=== PATIENT | female | born 1970 | race American Indian/Alaskan Native ===

== ENCOUNTER 2021-02-23 06:07 | Observation (INO) | payer OTHER ==
[2021-02-17 12:03] LABS: Hemoglobin 11.3 gm/dl (10.1-14.3); Mean Corpuscular HGB Conc 33 % (30-34); Mean Corpuscular Volume 85 fl (79-97); Platelet Count 322 K/mm3 (140-440); Red Blood Count 3.99 M/mm3 (3.65-5.03); Red Cell Distribution Width 14.4 % (13.2-15.2)
[2021-02-17 12:22] LABS: BUN/Creatinine Ratio 16; Blood Urea Nitrogen 16 mg/dL (7-17); Calcium 9.5 mg/dL (8.4-10.2); Hemolysis Index 5
--- NOTE | 2021-02-22 09:38 | Anesthesia Consultation ---
Anesthesia Consult and Med Hx Date of service: 02/22/21 - Airway Anesthetic Teeth Evaluation: Good ROM Head & Neck: Adequate Mental/Hyoid Distance: Adequate Mallampati Class: Class II Intubation Access Assessment: Probably Good - Pulmonary Exam CTA: Yes - Cardiac Exam Cardiac Exam: RRR - Pre-Operative Health Status ASA Pre-Surgery Classification: ASA1 Proposed Anesthetic Plan: General Nerve Block: TAP - Pulmonary Hx Smoking: No Hx Respiratory Symptoms: No Hx Sleep Apnea: No (NIKKY PRE SCREEN NEGATIVE) - Cardiovascular System Hx Hypertension: No Hx Heart Attack/AMI: No (recent normal cardiac eval) - Central Nervous System CVA: No Hx Psychiatric Problems: Yes (anxiety, depression) - Endocrine Hx Renal Disease: No Hx Liver Disease: No Hx Insulin Dependent Diabetes: No Hx Non-Insulin Dependent Diabetes: No Hx Thyroid Disease: No - Hematic Hx Anemia: Yes (no hx blood transfusions) - Other Systems Hx Obesity: No - Additional Comments Anesthesia Medical History Comments: No prior GA. No FHx anesthetic complications.
--- NOTE | 2021-02-22 13:43 | History and Physical Report ---
History of Present Illness Date of examination: 02/19/21 Chief complaint: Menorrhagia, fibroids and dysmenorrhea History of present illness: Past History : 2 Term Births: 1 Living Children: 1 Para: 1 Spont. Ab: 1 # 1 Delivery date: 1992 Delivery type: [employer] History Uterine Surgery (not C/S): negative Operations: Breast Biopsy: (B) benign Hospitalizations: negative Anesthesia Complications: negative Abnormal PAP: negative Uterine Anomaly: negative NICK Exposure: negative Infertility: negative Infection History HIV Risk Eval: no Hep B Immunized: no TB exposure: no Personal hx. of genital herpes: no Partner hx. of genital herpes: no Hx of STD: None Active Medications (reviewed today): BUPROPION HCL ER (SR) 100 MG ORAL TABLET EXTENDED RELEASE 12 HOUR (BUPROPION HCL) VITAMIN D (CHOLECALCIFEROL) 25 MCG (1000 UT) ORAL CAPSULE (CHOLECALCIFEROL) Current Allergies (reviewed today): NSAIDS (Critical) Past Medical History: Reviewed history from 12/23/2020 and no changes required: H/O Anemia Anxiety Depression Past Surgical History: Reviewed history from 12/23/2020 and no changes required: Breast Biopsy: (B) benign Family History Summary: Reviewed history Last on 09/02/2013 and no changes required:02/22/2021 MGM - Has Family History Breast Cancer - diagnosed age 70, age 73 - Entered On: 02/16/2021 Mother - Has Family History of Lung Cancer - Entered On: 10/13/2020 Mother - Has Family History Breast Cancer - diagnosed age 64, age 74 - Entered On: 02/16/2021 General Comments - FH: Family History Breast Cancer Family History of Diabetes Family History of Hypertension Social History: Reviewed history from 10/13/2020 and no changes required: Patient is Smoking History: Patient has never smoked. Risk Factors: Smoked Tobacco Use: Never smoker Smokeless Tobacco Use: Never Passive Smoke Exposure: no HIV High Risk Behavior: no Exercise: yes Seatbelt Use: 100 % Alcohol Use: yes Type: Covid weekend consumption Drinks per day: social Drug Use: no Previous Tobacco Use: Signed On - 12/23/2020 Smoked Tobacco Use: Never smoker Smokeless Tobacco Use: Never Passive Smoke Exposure: no HIV High Risk Behavior: no Caffeine Use: 0 drinks per day Exercise: yes Times/wk: 4-5 Type of Exercise: running and yoga Seatbelt Use: 100 % Alcohol Use: yes Type: Covid weekend consumption Drinks per day: social Drug Use: no Physical Exam Appearance: well developed, well nourished, no acute distress Other Exams Lungs: no rales, rhonchi, or wheezes Heart: S1, S2, no murmur, rub, or gallop Genitourinary Exam Uterus: deferred for EUA Impression & Recommendations: Problem # 1: Fibroids, uterus (ICD-218.9) (XVH87-U46.9) She desires to proceed with hysterectomy with removal of both tubes and ovaries Diagnosis explained to patient . Discussed with patient various medical, shan gical and radiological therapies common for treatment including, but not limited to, myomectomy, hysterectomy and uterine artery embolization. Discussed risks and benefits of laparotomy, laparoscopy, vaginal and robotic assisted approaches for hysterectomies. Patient desires definitive treatment in the form of robot assisted laparoscopic total hysterectomy. The risks and alternatives for this surgery were reviewed with the patient. She was informed of the risks of the surgery including, but not limited to, pain, infection, bleeding possibly heavy enough to require a blood transfusion with associated risks of infections (hepatitis and HIV) and transfusion reactions, possible damage to bowel, bladder or ureter(s) and surrounding organs. . Patient understands that this surgery will make her sterile. Indications to abort a robotic/laparoscopic procedure and perform an open procedure were explained. Patient understands after her ovaries are removed she will become menopausal. Menopause symptoms and treatment options with risks and benefits explained. Patient advised the small risks of spreading of malignancy if morcellation is required during the surgery patient understands and approves performing if necessary. Questions answered. Consent reviewed and signed The patient was instructed/informed the following: The normal length of hospital stay for this procedure. Nothing to eat or drink after midnight the evening prior to surgery.. Pre-op instruction sheets given. Wound care instructions given. Problem # 2: Excessive and frequent menstruation with regular cycle (ICD-626.2) (UKX10-U23.0) Problem # 3: Dysmenorrhea (ICD-625.3) (GYR78-H44.6) Medications and Allergies Allergies Allergy/AdvReac Type Severity Reaction Status Date / Time No Known Allergies Allergy Verified 02/17/21 15:33 Home Medications Medication Instructions Recorded Confirmed Last Taken Type Cholecalciferol Vit D3 [Vitamin D3 1,000 unit PO QDAY 02/17/21 02/17/21 Unknown History 1,000 UNIT TAB] Pantoprazole [Protonix] 40 mg PO QDAY 02/17/21 02/17/21 Unknown History buPROPion [Wellbutrin] 100 mg PO DAILY 02/17/21 02/17/21 Unknown History Active Meds: Active Medications Acetaminophen (Acetaminophen 500 Mg Tab) 1,000 mg PO ONCE PHILOMENA Stop: 02/23/21 21:00 Celecoxib (Celecoxib 200 Mg Cap) 400 mg PO PREOP NR Stop: 02/23/21 21:00 Fentanyl (Fentanyl 100 Mcg/2 Ml Inj) 100 mcg IV ONCE PRN PRN Reason: sedation for nerve block Stop: 02/23/21 12:00 Gabapentin (Gabapentin 300 Mg Cap) 300 mg PO PREOP NR Stop: 02/23/21 12:00 Lactated Ringer's (Lactated Ringers) 1,000 mls @ 125 mls/hr IV DIRECT PHILOMENA Cefazolin Sodium (Ancef/Sterile Water 2 Gm/20 Ml) 2 gm in 20 mls @ 80 mls/hr IV PREOP NR; Protocol Stop: 02/23/21 23:59 Midazolam HCl (Midazolam 2 Mg/2 Ml Inj) 2 mg IV PREOP NR Stop: 02/23/21 12:00 Scopolamine (Scopolamine Transdermal Patch 72 Hr) 1 each TD PREOP NR Stop: 02/23/21 12:00 Exam Vital Signs Temp Pulse Resp BP Pulse Ox 98.5 F 74 20 144/80 100 02/17/21 11:35 02/17/21 11:35 02/17/21 11:35 02/17/21 11:35 02/17/21 11:35 Results - Labs 02/17/21 10:45 02/17/21 10:45 Assessment and Plan - Patient Problems (1) Menorrhagia Status: Acute Qualifiers: Menorrhagia type: with regular cycle Qualified Code(s): N92.0 - Excessive and frequent menstruation with regular cycle (2) Fibroids, intramural Status: Acute (3) Dysmenorrhea Status: Acute
[~2021-02-23 06:07] MED LIST: ACETAMINOPHEN 500 MG TAB PO SCH; CELECOXIB 200 MG CAP PO NR; GABAPENTIN 300 MG CAP PO NR; LACTATED RINGERS 1,000 ML IV SCH; MAGNESIUM OXIDE 400 MG TAB PO SCH; MIDAZOLAM 2 MG/2 ML INJ IV NR; SCOPOLAMINE TRANSDERMAL PATCH 72 HR TD NR; ceFAZolin/Water 2 GM/20 ML 2 GM/20 ML SYRINGE IV NR; fentaNYL 100 MCG/2 ML INJ IV PRN
[2021-02-23] MEDS ORDERED: ROCURONIUM 50 MG/5 ML INJ IV ONE (07:03)
[2021-02-23] MEDS ORDERED: propofoL 200 MG/20 ML VIAL IV ONE (07:03)
[2021-02-23] MEDS ORDERED: LIDOCAINE MPF (2%) 20 MG/1 ML VIAL 5 ML ONE (07:03)
[2021-02-23] MEDS ORDERED: fentaNYL 100 MCG/2 ML INJ ONE (07:03)
[2021-02-23] MEDS ORDERED: dexAMETHasone 20 MG/5 ML VIAL ONE (07:04)
[2021-02-23] MEDS ORDERED: ONDANSETRON 4 MG/2 ML INJ ONE (07:04)
[2021-02-23] MEDS ORDERED: NEOMY 40 MG/POLYMYXIN B 200,000 UNITS/ML (GU) AMPULE IR ONE ×2 (07:08→10:15)
[2021-02-23] MEDS ORDERED: ePHEDrine SULFATE 50 MG/1 ML INJ ONE (07:14)
[2021-02-23] MEDS ORDERED: LIDOCAINE (1%) 10 MG/1 ML VIAL 20 ML MDV ONE (07:19)
[2021-02-23] MEDS ORDERED: cloNIDine/PF 1,000 MCG/10 ML VIAL EP ONE (07:19)
[2021-02-23] MEDS ORDERED: dexAMETHasone 4 MG/ML VIAL ONE (07:19)
[2021-02-23] MEDS ORDERED: BUPIVACAINE-EPINEPHRINE/PF 0.25%-1:200,000 (30 ML) VIAL INFILTRATI ONE (07:19)
[2021-02-23] MEDS ORDERED: ONDANSETRON 4 MG/2 ML INJ IV PRN ×2 (07:23→12:33)
--- NOTE | 2021-02-23 07:23 | Anesthesia Day of Surgery ---
Anesthesia Day of Surgery - Day of Surgery Patient Examined: Yes Patient H&P Reviewed: Yes Patient is NPO: Yes
[2021-02-23] MEDS ORDERED: KETOROLAC 30 MG/1 ML INJ ONE (07:30)
[2021-02-23] MEDS ORDERED: HYDROmorphone 1 MG/1 ML INJ ONE (08:13)
[2021-02-23] MEDS ORDERED: SODIUM CHLORIDE 0.9% IRRIG SOLN 2000 ML IR ONE (10:15)
[2021-02-23] MEDS ORDERED: SODIUM CHLORIDE 0.9% IRR 1,500 ML BOTTLE IR ONE (10:15)
[2021-02-23] MEDS: HYDROmorphone 1 MG/1 ML INJ IV PRN ×4 (10:57→11:35)
--- NOTE | 2021-02-23 11:24 | Operative Report ---
Operative Report Operative Report: Date: 03/05/2021 Preoperative diagnosis: 1. Menorrhagia 2. Uterine fibroid 3. Body mass index of 23.5 kg/m 4. Dysmenorrhea 5. Anxiety Postoperative diagnosis: 1. Menorrhagia 2. Uterine fibroid 3. Body mass index of 23.5 kg/m 4. Dysmenorrhea 5. Anxiety Procedure: 1. Robotic-assisted laparoscopic total hysterectomy with bilateral Salpingo-oophorectomy Surgeon: Chandrika Garcia MD Audio Engineer: Phyllis Wilks Anesthesiologist: Dr. Amaral Anesthesia: General endotracheal anesthesia EBL: Approximately 150 mL Findings: EUA: Uterus palpated to approximately 15 weeks. Uterus was sounded to 12 cm. Grossly normal tubes and ovaries. Procedure: Patient was taken to the OR and placed in the supine position. General anesthesia was induced and an oral gastric tube was placed. Her neck and head were placed on foam support. Foam eye protection with goggles were secured in place. Then foam face protection was placed and secured. Foam shoulder pads were then positioned on her shoulders for Trendelenburg positioning. She was then placed in dorsolithotomy position. Exam under anesthesia as above. The abdomen and vagina were then prepped and draped in the usual sterile fashion. Timeout was performed. A Alberto catheter was inserted into the bladder with drainage of clear yellow urine. The operative speculum was introduced into the vagina and the anterior lip of the cervix was grasped with single-toothed tenaculum. The uterus was sounded to 12 cm. The cervix was progressively dilated to allow the large V care uterine manipulator. The bulb of the manipulator was inflated and the speculum and tenaculum were removed. The cup of the manipulator was placed around the cervix and the blue occluder of the manipulator was properly positioned in the vagina and secured. A laparotomy sponge that was saturated with a solution of polymyxin and saline was placed in the vagina to ensure pneumoperitoneum. Sterile gloves were placed and attention was turned to the abdomen. A 10 mm midline vertical supraumbilical incision was made approximately 10 cm superior to the elevated fundus of the uterus. A 10-12 mm trocar with the laparoscope and camera attached was introduced through this incision under direct visualization. The abdomen was insufflated. No obvious bowel, bladder, ureteral, or major vascular injury was noted. The patient was then placed in steep Trendelenburg position and the following trochars were placed under direct visualization: 8 mm robotic trochars were placed through incisions made in the bilateral midclavicular lower abdominal region approximately 10 cm lateral to the midline incision, and a 5 mm trocar was placed through an incision made in the right lower lateral pelvis. The 10 mm laparoscope was then replaced by a 5 mm laparoscope that was placed through the 5 millimeter lateral trocar. The 12 mm trocar was then removed and the Alejandro Srinivasan fascial closure device was placed through the incision and a 0 Vicryl was placed through the fascia. Once the suture was secured the 12 mm trocar was reintroduced. Once the trochars were in the appropriate positions, the da Dez robot system was engaged. The EndoShears and bipolar device was placed through the 8 mm trochars and posi tioned then attention was turned to the console. The uterus was elevated and bilateral salpingectomy was performed. Each tube was removed through the 5 mm trocar and sent to pathology in separate containers. Then the utero-ovarian ligaments were clamped. cauterized and incised bilaterally using 30 W of energy. Then the round ligaments were clamped, cauterized and incised bilaterally. The anterior leaf of the broad ligament was elevated and with careful blunt and sharp dissection the bladder flap was created and dissected away from the lower uterine segment and cervix. The posterior leaf of the broad ligament was dissected away from the uterine vessels. The cup of the uterine manipulator was palpated both anteriorly and posteriorly. The bladder was further dissected away from the lower uterine segment. The uterine vessels were then clamped and cauterized bilaterally. Blanching of the uterus was then noted. Attention was again turned to the anterior lower uterine segment and the bladder was confirmed to be away from the operative field. Then attention was turned again to the posterior where the cup of the manipulator was palpated and a colpotomy was performed down to the cup. The incision was extended in the lateral position to the uterine vessels that were again clamped and cauterized and incised. Continuing along the cup of the manipulator in a circumferential manner the colpotomy was completed. The uterus and cervix were then removed through the vaginal incision. The pelvis was irrigated with warm normal saline. A moist laparotomy sponge was placed in the vagina to maintain pneumoperitoneum. The vagina cuff was reapproximated using V LOC 180 suture. Then a J stitch was performed to secure the suture. Again the pelvis was copiously irrigated with polymixin in warm normal saline. The laparotomy sponge was removed from the vagina. No obvious evidence of bowel, bladder, ureteral, or major vascular injury was noted. Once hemostasis was noted, Radha was applied to the operative field to ensure hemostasis. Then the instruments were removed, the robot was disengaged. The 12 mm trocar was removed and the fascia was ligated with the 0 Vicryl suture that was placed at the beginning of the procedure. The patient was taken out of Trendelenburg position, the abdomen was desufflated, the remaining trochars were removed. Incisions were reapproximated using 4-0 Monocryl in a subcuticular manner. Surgiseal was placed over the other incisions. The vagina was then inspected, the cuff was palpated to be intact and no bleeding was noted and clear yellow urine was draining into the Alberto bag from the bladder at the end of the procedure. Counts were correct 3. Patient was taken to recovery room in stable condition.
--- NOTE | 2021-02-23 11:59 | Post Anesthesia Evaluation ---
- Post Anesthesia Evaluation Patient Participated: Yes Airway Patent: Yes Stable Respiratory Function: Yes Nausea/Vomiting: No Temp > 96.8F: Yes Pain Manageable: Yes Adequeate Hydration: Yes Anesthesia Complications: No
[2021-02-23] MEDS ORDERED: NALOXONE 0.4 MG/1 ML INJ IV PRN (12:33)
[2021-02-23] MEDS ORDERED: traMADol 50 MG TAB PO PRN (12:33)
[2021-02-23] MEDS ORDERED: HYDROmorphone 1 MG/1 ML INJ IV PRN ×2 (12:33→12:38)
[2021-02-23] MEDS ORDERED: METOCLOPRAMIDE 10 MG/2 ML INJ IV PRN (12:33)
[2021-02-23] MEDS: KETOROLAC 30 MG/1 ML INJ IV SCH ×2 (13:17→21:20)
[2021-02-23] MEDS: ACETAMINOPHEN 500 MG TAB PO SCH ×2 (13:24→21:19)
[2021-02-23] MEDS: ceFAZolin/NS 1 GM/50 ML 1 GM/50 ML BAG IV SCH (16:20)
--- NOTE | 2021-02-23 16:48 | Event Note ---
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 Encouraged ambulation when appropriate. Expelling gas, burp, flatus will improve discomfort. All concerns addressed. Pt aware Dr Garcia will see her later today. Advance as tolerated per orders.
--- NOTE | 2021-02-23 17:19 | Progress Note ---
Assessment and Plan - Patient Problems (1) History of robot-assisted laparoscopic hysterectomy Current Visit: Yes Status: Acute Plan to address problem: DOS, doing well. Operative findings and procedure explained. Plan of care discussed. Questions encouraged and answered. She voiced understanding and agree with plan of care (2) S/P BSO (bilateral salpingo-oophorectomy) Current Visit: Yes Status: Acute (3) Menorrhagia Current Visit: No Status: Resolved Qualifiers: Menorrhagia type: with regular cycle Qualified Code(s): N92.0 - Excessive and frequent menstruation with regular cycle (4) Fibroids, intramural Current Visit: No Status: Resolved (5) Dysmenorrhea Current Visit: No Status: Resolved Subjective - Subjective Date of service: 02/23/21 Principal diagnosis: DOS S/P RALTH/BSO Interval history: Past History : 2 Term Births: 1 Living Children: 1 Para: 1 Spont. Ab: 1 # 1 Delivery date: 1992 Delivery type: [employer] History Uterine Surgery (not C/S): negative Operations: Breast Biopsy: (B) benign Hospitalizations: negative Anesthesia Complications: negative Abnormal PAP: negative Uterine Anomaly: negative NICK Exposure: negative Infertility: negative Infection History HIV Risk Eval: no Hep B Immunized: no TB exposure: no Personal hx. of genital herpes: no Partner hx. of genital herpes: no Hx of STD: None Active Medications (reviewed today): BUPROPION HCL ER (SR) 100 MG ORAL TABLET EXTENDED RELEASE 12 HOUR (BUPROPION HCL) VITAMIN D (CHOLECALCIFEROL) 25 MCG (1000 UT) ORAL CAPSULE (CHOLECALCIFEROL) Current Allergies (reviewed today): NSAIDS (Critical) Past Medical History: Reviewed history from 12/23/2020 and no changes required: H/O Anemia Anxiety Depression Past Surgical History: Reviewed history from 12/23/2020 and no changes required: Breast Biopsy: (B) benign Family History Summary: Reviewed history Last on 09/02/2013 and no changes required:02/22/2021 MGM - Has Family History Breast Cancer - diagnosed age 70, age 73 - Entered On: 02/16/2021 Mother - Has Family History of Lung Cancer - Entered On: 10/13/2020 Mother - Has Family History Breast Cancer - diagnosed age 64, age 74 - Entered On: 02/16/2021 General Comments - FH: Family History Breast Cancer Family History of Diabetes Family History of Hypertension Social History: Reviewed history from 10/13/2020 and no changes required: Patient is Smoking History: Patient has never smoked. Risk Factors: Smoked Tobacco Use: Never smoker Smokeless Tobacco Use: Never Passive Smoke Exposure: no HIV High Risk Behavior: no Exercise: yes Seatbelt Use: 100 % Alcohol Use: yes Type: Covid weekend consumption Drinks per day: social Drug Use: no Previous Tobacco Use: Signed On - 12/23/2020 Smoked Tobacco Use: Never smoker Smokeless Tobacco Use: Never Passive Smoke Exposure: no HIV High Risk Behavior: no Caffeine Use: 0 drinks per day Exercise: yes Times/wk: 4-5 Type of Exercise: running and yoga Seatbelt Use: 100 % Alcohol Use: yes Type: Covid weekend consumption Drinks per day: social Drug Use: no Physical Exam Appearance: well developed, well nourished, no acute distress Other Exams Lungs: no rales, rhonchi, or wheezes Heart: S1, S2, no murmur, rub, or gallop Genitourinary Exam Uterus: deferred for EUA Impression & Recommendations: Problem # 1: Fibroids, uterus (ICD-218.9) (NKG87-N99.9) She desires to proceed with hysterectomy with removal of both tubes and ovaries Diagnosis explained to patient . Discussed with patient various medical, surgical and radiological therapies common for treatment including, but not limited to, myomectomy, hysterectomy and uterine artery embolization. Discussed risks and benefits of laparotomy, laparoscopy, vaginal and robotic assisted approaches for hysterectomies. Patient desires definitive treatment in the form of robot assisted laparoscopic total hysterectomy. The risks and alternatives for this surgery were reviewed with the patient. She was informed of the risks of the surgery including, but not limited to, pain, infection, bleeding possibly heavy enough to require a blood transfusion with associated risks of infections (hepatitis and HIV) and transfusion reactions, possible damage to bowel, bladder or ureter(s) and surrounding organs. . Patient understands that this surgery will make her sterile. Indications to abort a robotic/laparoscopic procedure and perform an open procedure were explained. Patient understands after her ovaries are removed she will become menopausal. Menopause symptoms and treatment options with risks and benefits explained. Patient advised the small risks of spreading of malignancy if morcellation is required during the surgery patient understands and approves performing if necessary. Questions answered. Consent reviewed and signed The patient was instructed/informed the following: The normal length of hospital stay for this procedure. Nothing to eat or drink after midnight the evening prior to surgery.. Pre-op instruction sheets given. Wound care instructions given. Problem # 2: Excessive and frequent menstruation with regular cycle (ICD-626.2) (ZKT12-U11.0) Problem # 3: Dysmenorrhea (ICD-625.3) (CHU34-T15.6) Patient reports: pain well controlled Objective - Vital Signs Latest vital signs: Vital Signs Temp Pulse Resp BP BP Pulse Ox 02/23/21 13:30 97.5 F L 73 20 125/77 100 02/23/21 13:24 20 02/23/21 13:17 20 02/23/21 12:35 97 02/23/21 12:30 97.5 F L 73 16 125/72 100 02/23/21 12:00 67 17 114/57 100 02/23/21 11:45 66 14 111/67 100 02/23/21 11:30 80 16 117/66 100 02/23/21 11:15 65 16 113/69 100 02/23/21 11:05 15 02/23/21 11:00 79 10 L 113/76 100 02/23/21 10:57 15 02/23/21 10:50 73 13 108/72 100 02/23/21 10:45 66 14 101/60 100 02/23/21 10:41 97.3 F L 66 16 102/60 100 02/23/21 07:42 69 14 134/77 100 02/23/21 07:38 64 17 117/71 100 02/23/21 07:33 72 20 133/81 100 02/23/21 07:28 70 16 141/80 100 02/23/21 07:14 99.2 F 74 16 135/88 100 Intake and Output 02/23/21 02/23/21 02/23/21 06:59 14:59 22:59 Intake Total 1050 Output Total 175 Balance 875 Intake: IV 1050 Output: Urine 175 Other: Voiding Method Toilet Indwelling Catheter - Exam Narrative Exam: Alert and appropriately responsive. No complaints Breasts: Present: deferred Lungs: Present: Clear to auscultation, Normal air movement Abdomen: Present: normal appearance, soft, normal bowel sounds. Absent: guarding Extremities: Present: normal. Absent: tenderness, edema Incision: Present: normal, dry, intact
[2021-02-23] MEDS ORDERED: diphenhydrAMINE 25 MG CAP PO ONE (22:14)
[2021-02-24] MEDS: ceFAZolin/NS 1 GM/50 ML 1 GM/50 ML BAG IV SCH (00:08)
[2021-02-24] MEDS: ACETAMINOPHEN 500 MG TAB PO SCH (04:32)
[2021-02-24] MEDS: KETOROLAC 30 MG/1 ML INJ IV SCH (04:33)
[2021-02-24 06:32] LABS: Hemoglobin 9.2 gm/dl (10.1-14.3)
--- NOTE | 2021-02-24 06:40 | Event Note ---
Date: 02/24/21 ([employer] note) Pt in good spirits this AM. States she has been OOB to toilet and walk. Shoulder discomfort is better. Pt asking @ d/c Exp Dr Garcia will see her later this AM. All concerns addressed. Pt has her postop visit mp.
--- NOTE | 2021-02-24 08:13 | Discharge Summary ---
Providers - Providers Date of Admission: 02/23/21 10:49 Date of discharge: 02/24/21 Attending physician: FAIZA PALACIOS Primary care physician: DAMIEN BAEZ MD Hospitalization Condition: Good Procedures: S/P RALTH, BSO Hospital course: Normal Disposition: DC-01 TO HOME OR SELFCARE Final Discharge Diagnosis (Prints w/discharge instructions): S/P RALTH, BSO - Discharge Diagnoses (1) History of robot-assisted laparoscopic hysterectomy Status: Acute (2) S/P BSO (bilateral salpingo-oophorectomy) Status: Acute (3) Menorrhagia Status: Resolved Qualifiers: Menorrhagia type: with regular cycle Qualified Code(s): N92.0 - Excessive and frequent menstruation with regular cycle (4) Fibroids, intramural Status: Resolved (5) Dysmenorrhea Status: Resolved Core Measure Documentation - Palliative Care Palliative Care/ Comfort Measures: Not Applicable - Core Measures Any of the following diagnoses?: none Exam - Constitutional Vitals: Temp Pulse Resp BP Pulse Ox 99.3 F 72 18 100/53 99 02/24/21 04:26 02/24/21 04:26 02/24/21 05:03 02/24/21 04:26 02/24/21 04:26 General appearance: Present: no acute distress - Neck Neck: Present: supple - Respiratory Respiratory effort: normal Respiratory: bilateral: CTA - Cardiovascular Rhythm: regular - Extremities Extremities: no ischemia, No edema - Abdominal General gastrointestinal: Present: soft, non-distended, normal bowel sounds Female genitourinary: Present: deferred - Integumentary Integumentary: Present: clear, warm, dry (Trocar incisions are clean dry and intact) - Psychiatric Psychiatric: appropriate mood/affect, intact judgment & insight, memory intact, cooperative - Neurologic Neurologic: CNII-XII intact Plan Activity: other (No sex, no driving. Ambulate approximately 1 mile on your property daily. Void every hour to prevent pressure from occurring in the vagina. Use your incentive spirometer every hour while awake.) Weight Bearing Status: Full Weight Bearing Diet: regular (Avoid spicy, high salt, high-fat foods. Drink 68 ounces of water daily.) Wound: open to air, keep clean and dry Special Instructions: no heavy lifting (Greater than 15 pounds) Follow up with: PRIMARY CARE, [Primary Care Provider] - 7 Days FAIZA PALACIOS MD [Staff Physician] - (As scheduled) Prescriptions: Ibuprofen [Motrin 800 MG tab] 800 mg PO Q8H PRN #60 tablet PRN Reason: Pain, Moderate (4-6) oxyCODONE /ACETAMINOPHEN [Percocet 5/325 mg] 1 - 2 tab PO Q6H PRN #10 tablet PRN Reason: Pain, Moderate (4-6)
[2021-02-24] MEDS ORDERED: PANTOPRAZOLE 40 MG INJ IV SCH (10:00)
[2021-02-24] MEDS: buPROPion 100 MG TAB PO SCH ×2 (10:35→10:40)
[2021-02-24] MEDS ORDERED: oxyCODONE /ACETAMINOPHEN 5-325MG TAB PO PRN (12:00)
--- NOTE | 2021-02-24 12:18 | Event Note ---
Date: 02/24/21 Received a call from RN stating she has not voided since Alberto removed ~6hours ago, no bleeding, no pain, states she feels she needs to go but can't. According to RN VSS. Instrd to increase po fuild and observe for 1hour and call back.
[2021-02-24] MEDS ORDERED: IBUPROFEN 800 MG TAB PO PRN (12:49)
[2021-02-24 13:22] VITALS: BP 99/58
== END 2021-02-24 13:30 | disposition home or self-care (01) ==
LOC: OR 06:07 → OB 10:49
PROVIDERS: ADMIT Obstetrics & Gynecology; ATTEND Obstetrics & Gynecology
DX: N92.0 Excessive and frequent menstruation with regular cycle (principal); Z20.822 Contact with and (suspected) exposure to COVID-19; D25.1 Intramural leiomyoma of uterus; N94.6 Dysmenorrhea, unspecified; F41.9 Anxiety disorder, unspecified; F32.9 Major depressive disorder, single episode, unspecified; Z90.710 Acquired absence of both cervix and uterus; Z90.722 Acquired absence of ovaries, bilateral
CPT/HCPCS: 36415; 58573; 64450; 80048; 81025; 85014; 85018; 85027; 86850; 86900; 86901; 88307; 96365; 96366; 96375; 96376; A4217; C9113; G0378; J0690; J0735; J1100; J1170; J1885; J2250; J2405; J2704; J3010; J7120; S2900; U0003; 88302; 88305